=== PATIENT | male | born 2000 | race African-American/Black ===

== ENCOUNTER 2022-12-09 22:19 | Emergency (ER) | payer OTHER ==
[2022-12-09 23:44] LABS: #Eosinphils 0.1 10x3/uL (0.0-0.5); #Monocytes 0.8 10x3/uL (0.0-1.1); #Neutrophils 6.7 10x3/uL (1.5-8.4); %Basophils 0.2 % (0.0-2.0); %Eosinophils 0.6 % (0.0-6.0); %Lymphocytes 15.6 % (18.0-47.0); %Monocytes 9.2 % (0.0-10.0); %Neutrophils 74.3 % (40.0-75.0); Hemoglobin 13.8 g/dL (13.5-17.5); Mean Corpuscular Hemoglobin 31.4 pg (27.0-33.0); Mean Corpuscular Volume 92.3 fl (81.2-95.1); Mean Platelet Volume 10.9 fl (7.4-10.4); Platelet Count 217 10x3/uL (150-450); RBC Distribution Width 11.7 % (11.5-14.5)
[2022-12-09 23:57] LABS: Anion Gap 13 mmol/L (10-20); BUN (Urea Nitrogen) 11 mg/dL (8.9-20.6); Calc. Creatinine Clearance 0 mL/min (70-130); Calcium 9.3 mg/dL (7.8-10.44); Carbon Dioxide 28 mmol/L (22-29); Chloride 104 mmol/L (98-107); Estimated GFR 109; Glucose 88 mg/dL (70-105); Potassium 4.2 mmol/L (3.5-5.1); Sodium 141 mmol/L (136-145)
[2022-12-10] MEDS ORDERED: CEFAZOLIN 2 GM VIAL ONE (00:56)
[2022-12-10] MEDS ORDERED: Ondansetron PF 4 MG/2 ML Vial ONE (00:57)
[2022-12-10] MEDS ORDERED: Morphine 4 MG/ML VIAL ONE (00:57)
[2022-12-10 03:53] LABS: SARS-CoV-2 NAA Rapid Test Not Detected (NotDetected)
[2022-12-10] MEDS ORDERED: Ampicillin/Sulbactam 3 GM in Sodium Chloride 0.9% 100 ML IVPB SCH (04:00)
[2022-12-10] MEDS ORDERED: Chlorhexidine Gluconate 15 ML UDCUP SSP SCH (04:00)
== END 2022-12-10 09:10 | disposition short-term general hospital (02) ==
LOC: CSHERS 22:19
DX: S02.641B Fracture of ramus of right mandible, initial encounter for open fracture (principal); W19.XXXA Unspecified fall, initial encounter
CPT/HCPCS: 70486; 76377; 80048; 85025; 96374; 96375; J0295; J2270; J2405; J3490; U0002